=== PATIENT | female | born 1970 | race Caucasian/White ===

== ENCOUNTER 2017-09-29 18:03 | Inpatient (IN) | payer OTHER, SELFPAY ==
[2017-09-29 18:33] LABS: #Basophils 0.1 thou/uL (0.0-0.2); #Eosinphils 0.2 thou/uL (0.0-0.7); #Monocytes 1.2 thou/uL (0.11-0.59); #Neutrophils 8.1 thou/uL (1.40-6.50); %Eosinophils 1.1 % (0.0-10.0); %Lymphocytes 29.4 % (21.0-51.0); %Monocytes 8.8 % (0.0-10.0); Hematocrit 47.4 % (36.0-47.0); Mean Platelet Volume 7.8 fL (7.4-10.4); Red Blood Cell (RBC) Count 4.92 mill/uL (4.20-5.40); White Blood Cell (WBC) Count 13.6 thou/uL (4.8-10.8)
--- NOTE | 2017-09-29 18:46 | RAD ---
CHEST ONE VIEW 09/29/17 HISTORY: Palpitations. FINDINGS: The cardiac silhouette is magnified by projection. Pulmonary vasculature is unremarkable. Mediastinum is midline. There is no confluent air space consolidation or evidence of pneumothorax. The cardiac m onitor leads overlie the chest. IMPRESSION: No active cardiopulmonary abnormalities are demonstrated. POS: [facility]
[2017-09-29] MEDS ORDERED: Nitroglycerin 0.4 MG TAB (25 Tab Bottle) ONE (18:56)
[2017-09-29 18:58] LABS: ALT (SGPT) 11 U/L (8-55); AST (SGOT) 13 U/L (5-34); Alkaline Phosphatase 72 U/L (40-150); Anion Gap 13 mmol/L (10-20); BUN (Urea Nitrogen) 14 mg/dL (7.0-18.7); Bilirubin, Total 0.5 mg/dL (0.2-1.2); CK (CPK) 26 U/L (29-168); Calc. Creatinine Clearance 0 mL/min (70-130); Calcium 9.7 mg/dL (7.8-10.44); Carbon Dioxide 28 mmol/L (22-29); Chloride 102 mmol/L (98-107); Estimated GFR-MDRD 75; Globulin 3.3 g/dL (2.4-3.5); Protein, Total 7.5 g/dL (6.0-8.3)
[2017-09-29 19:03] LABS: Troponin I Less than 0.010 ng/mL (< 0.028)
[2017-09-29 19:50] LABS: Bilirubin Negative (Negative); Blood, Urine Small (Negative); Glucose, Urine (Dipstick) Negative (Negative); Ketone, Urine Negative (Negative); Nitrite Negative (Negative); Protein, Urine (Dipstick) Negative (Neg-Trace); Urobilinogen 0.2 mg/dL (0.2-1.0)
[2017-09-29 19:56] LABS: Bacteria/HPF None Seen HPF (None Seen); Hyaline Casts/LPF 0-3 HYALINE CAST LPF (0-3 Hyaline); Squamous Epithelial 0-3 HPF (0-3); WBC/HPF None Seen HPF (0-3)
[2017-09-29] MEDS ORDERED: Acetaminophen 500 MG TAB ONE (22:25)
[2017-09-29] MEDS ORDERED: Mag-Al 1200 mg/1200 mg/30 ML UDCUP PO PRN (22:47)
[2017-09-29] MEDS ORDERED: Milk Of Magnesia 30 ML UDCUP PO PRN (22:47)
[2017-09-29] MEDS ORDERED: Senokot 8.6 MG TAB PO PRN (22:47)
[2017-09-29] MEDS ORDERED: Zolpidem Tartrate 5 MG TAB PO PRN (22:47)
[2017-09-29] MEDS ORDERED: Acetaminophen 325 MG TAB PO PRN (22:47)
[2017-09-29] MEDS ORDERED: Loperamide HCl 2 MG CAP PO PRN (22:47)
[2017-09-29 22:48] VITALS: BMI 20.2
[2017-09-29 22:53] LABS: Troponin I Less than 0.010 ng/mL (< 0.028)
--- NOTE | 2017-09-29 23:36 | PDOC.EVN ---
Event Note - Event Note Event Note: Patient seen and examined. dictation note to follow
--- NOTE | 2017-09-30 01:09 | HP ---
DATE OF SERVICE: 09/29/2017 PRIMARY CARE PHYSICIAN: Sue Welch M.D. REASON FOR ADMISSION: Chest pain and palpitations. HISTORY OF PRESENT ILLNESS: A 47-year-old female who has history of supraventricular tachycardia who presented to the emergency room with complaint of chest pain and palpitation. The patient reports t hat she has a 2-week history of intermittent palpitation and chest discomfort. She denies any specif ic aggravating or relieving factor. She feels on and off pressure sensation in her chest. She denie s any radiation of pain. She denies any associated nausea or vomiting, but she feels a funny sensati on in her chest. She denies any associated shortness of breath or diaphoresis. The patient denies t aking excessive caffeinated products. The patient reports that she is taking all her medications reg ularly. The patient was able to follow Dr. Meek in [place], [place] for her heart related problem, but as she lost insurance, she was not able to follow up with him. The patient reports that she has a history of SVT. She never had ablation before she is taking her medication only. She denies any f ever or chills. She denies any constipation, diarrhea, or UTI symptoms. She was recently treated fo r UTI, but currently denies any UTI symptoms. ALLERGIES: AMOXICILLIN, CIPRO TABLET, PENICILLIN, SULFA DRUGS. CURRENT HOME MEDICATIONS: Digoxin 0.125 mg p.o. daily, metoprolol 12.5 mg p.o. daily, propafenone 75 mg p.o. b.i.d. REVIEW OF SYSTEMS: The following complete review of systems was negative, unless otherwise mentioned in the HPI or below: Constitutional: Weight loss or gain, sense of well-being, ability to conduct usual activities, exerc ise tolerance. Skin/Breast: Rash, itching, changes in hair growth or loss, nail changes, breast lum ps, tenderness, swelling, nipple discharge. Eyes: Vision, double vision, tearing, blind spots, pain . ENT/Mouth: Headaches (location, time of onset, duration, precipitating factors), vertigo, lighthe adedness, injury. Vision, double vision, tearing, blind spots, pain, nose bleeding, colds, obstructio n, discharge, dental difficulties, gingival bleeding, dentures, neck stiffness, pain, tenderness, mas ses in thyroid or other areas. Cardiovascular: Precordial pain, substernal distress, palpitations, syncope, dyspnea on exertion, orthopnea, nocturnal paroxysmal dyspnea, edema, cyanosis, hypertension, heart murmurs, varicosities, phlebitis, claudication. Respiratory: Pain, shortness of breath, whee zing, stridor, cough, hemoptysis, fever or night sweats. Gastrointestinal: Poor appetite, dysphagia , indigestion, abdominal pain, heartburn, eructation, nausea, vomiting, hematemesis, jaundice, consti pation, or diarrhea, abnormal stools (brendan-colored, tarry, bloody, greasy, foul smelling), flatulence , hemorrhoids, recent changes in bowel habits. Genitourinary: Urgency, frequency, dysuria, nocturia , hematuria, polyuria, oliguria, unusual (or change in) color of urine, stones, hesitancy, change in size of stream, dribbling, acute retention or incontinence, libido, potency. Musculoskeletal: Pain, swelling, redness or heat of muscles or joints, limitation, of motion, muscular weakness, atrophy, c ramps. Neurologic/Psychiatric: Convulsions, paralyses, tremor, incoordination, parasthesias, diffic ulties with memory of speech, sensory or motor disturbances, or muscular coordination (ataxia, tremor ), emotional problems, anxiety, depression, previous psychiatric care, unusual perceptions, hallucina tions. Allergy/Immunologic: Skin rash, anemia, bleeding tendency, polydipsia, polyuria, intolerance to heat or cold. Please see my HPI for pertinent positives and negatives. All other review of systems reviewed and ne gative except as mentioned in the HPI. PAST MEDICAL HISTORY: History of SVT, history of trivial MR and trivial tricuspid regurgitation. PAST SURGICAL HISTORY: Reviewed and negative. PAST PSYCHIATRIC HISTORY: Reviewed and negative. FAMILY HISTORY: Patient's brother has pacemaker. Father also had heart disease. Mother also had he art disease. SOCIAL HISTORY: Patient lives at home. She denies any tobacco, alcohol or illicit drug abuse. EMERGENCY ROOM COURSE: The patient is given Tylenol 1 gram and nitroglycerin 0.4 mg sublingual and a spirin 325 mg. PHYSICAL EXAMINATION: VITAL SIGNS: On arrival, blood pressure 108/69, pulse 83, respiratory rate 20, temperature 98.5, sat uration 98% on room air, weight 250.8 kilograms. GENERAL: Patient is currently alert, awake, no acute distress. HEENT: Normocephalic, atraumatic. Eyes: Pupils round, reactive to light. Extraocular muscles inta ct. ENT: Oropharynx within normal limits. Moist mucous membranes. No oral lesions. No pharyngeal eryt beau, no exudate. NECK: Supple. Range of motion is normal. No meningeal signs of irritation. LUNGS: Clear to auscultation without any rhonchi or rales. CARDIAC: S1, S2 regular without any murmur. ABDOMEN: Soft, bowel sounds present, nontender, nondistended. No organomegaly, no mass, no suprapub ic tenderness. BACK: Unremarkable, no CVA tenderness. EXTREMITIES: Upper extremity passive movement of all joints are normal. Lower extremities: No kristin a. Good peripheral pulsation. SKIN: No skin rash. HEMATOLOGICAL: No lymphadenopathy. NEUROLOGIC: Nonfocal examination. SIGNIFICANT LABORATORY DATA: CBC: WBC 13.6, hemoglobin 15.1, platelets 336. BMP: Sodium 139, potassium 4.0, chloride 102, carbo n dioxide 28, BUN 14, creatinine 0.81, glucose 81, calcium 9.7. LFT: AST 13, ALT 11, alkaline phosp hatase 72, albumin 4.2, CK 26, CK-MB 0.5, troponin I less than 0.010. TSH 3.14. Urinalysis normal. EKG: Normal sinus rhythm, nonspecific ST-T changes. Chest x-ray based on my review, no acute cardi opulmonary process. ASSESSMENT AND PLAN: 1. Chest pain and palpitations, rule out acute coronary syndrome. At this point, patient's electroc ardiogram is normal. This patient does have a history of supraventricular tachycardia and that is wh y I will monitor on telemetry floor and rule out any kind of arrhythmia. Meanwhile, we will continue with nitroglycerin sublingual on a p.r.n. basis. We will check lipid profile for risk stratificatio n. Her TSH is normal. For further evaluation, we will perform exercise Cardiolite stress test tomor row morning. This patient has risk factors for coronary artery disease including her age as well as family history. 2. History of supraventricular tachycardia. We will continue patient's medication with digoxin 0.12 5 mg p.o. daily. We will hold metoprolol because we are planning to do a stress test. We will gualberto nue propafenone 75 mg p.o. b.i.d. 3. Deep venous thrombosis prophylaxis not needed because we are expecting discharge in 24 hours. 4. Gastrointestinal prophylaxis, Pepcid 20 mg p.o. b.i.d. 5. Code status: The patient is FULL CODE. Patient does not have any surrogate decision maker. Disposition plan based on stress test results, likely within 24 hours.
[2017-09-30 01:13] LABS: Troponin I Less than 0.010 ng/mL (< 0.028)
[2017-09-30] MEDS: HYDROcodone/Acetaminophen 5/325 mg Tablet PO PRN ×2 (03:19→09:06)
[2017-09-30] MEDS ORDERED: FLU VACC QS2017-18 36 mo. & older 0.5 ML SYRINGE IM ONE (09:00)
[2017-09-30] MEDS: Aspirin 325 MG TAB PO SCH (09:04)
[2017-09-30] MEDS: Famotidine 20 MG TAB PO SCH ×2 (09:04→21:53)
[2017-09-30] MEDS: Digoxin 0.125 MG TAB PO SCH (09:04)
[2017-09-30] MEDS: Propafenone HCl 150 MG TAB PO SCH ×2 (09:05→21:52)
[2017-09-30] MEDS: Ondansetron HCl/PF 4 MG/2 ML Vial IVP PRN ×2 (10:37→15:25)
--- NOTE | 2017-09-30 15:19 | NM ---
EXAM: NUCLEAR MEDICINE CARDIAC STRESS WITH EF AND WALL MOTION: HISTORY: Chest pain. History of SVT. Family history of coronary artery disease. COMPARISON: None. TECHNIQUE: The patient was administered 27.10 mCi of Technetium 99m sestamibi for stress imaging and 9 mCi of Te chnetium 99m sestamibi for stress imaging. Cardiac gating is performed. FINDINGS: There is evidence of reversibility involving the apical and mid anterior left ventricle. TID is 1.10. End-diastolic volume is 51 mL. End-systolic volume is 8 mL. CARDIAC GATING: Normal motion and thickening. Ejection fraction is 84%. IMPRESSION: Reversibility involving the apical and mid anterior left ventricle. POS: [facility]
--- NOTE | 2017-09-30 15:41 | PDOC.PN ---
- Subjective Encounter Start Date: 09/30/17 Encounter Start Time: 15:39 Subjective: some nausea, no chest pain - Objective Resuscitation Status: Resuscitation Status FULL:Full Resuscitation MAR Reviewed: Yes Vital Signs & Weight: Vital Signs (12 hours) Temp Pulse Resp BP Pulse Ox 09/30/17 09:04 79 09/30/17 08:05 97.6 F 79 18 100/53 L 99 09/30/17 07:51 98.2 F 79 18 I&O: 09/29/17 09/30/17 10/01/17 06:59 06:59 06:59 Intake Total 300 Output Total 300 Balance 0 Result Diagrams: 09/29/17 18:19 09/29/17 18:19 Phys Exam - Physical Examination Constitutional: NAD Neck: no JVD Respiratory: clear to auscultation bilateral Cardiovascular: RRR, no significant murmur Gastrointestinal: soft, non-tender Musculoskeletal: no edema Dx/Plan (1) Chest pain Code(s): R07.9 - CHEST PAIN, UNSPECIFIED Status: Acute (2) Nausea Code(s): R11.0 - NAUSEA Status: Acute (3) SVT (supraventricular tachycardia) Code(s): I47.1 - SUPRAVENTRICULAR TACHYCARDIA Status: Acute - Plan pos stress test test, cont asa, consult cardiology * .
[2017-09-30] MEDS ORDERED: ADENOSINE 60 MG/20 ML VIAL ONE (16:44)
[2017-09-30] MEDS ORDERED: Communication Order-Pharmacy FS SCH (17:30)
--- NOTE | 2017-09-30 22:15 | CON ---
DATE OF ADMISSION: 09/29/2017 DATE OF CONSULTATION: 09/30/2017 INDICATION FOR CONSULTATION: A 47-year-old female with a history of SVT and chest pain with abnormal stress test. Please refer to the notes already dictated by the nurse practitioner Alee. We were a sked to see this patient after she was found to have an abnormal stress test with what appears to be some anterior wall ischemia. She has a long history of SVT. She has been followed by Cardiology at another facility, but has not had any ablation. She has been on medical management, but recently lázaro rawls the last few months has been noticing episodes of supraventricular rapid heart rates and occasion ally with rapid heart rate, she developed chest discomfort. She presented to the hospital and underw ent evaluation in the emergency room, there was no SVT noted and she has not had any SVT since being in the hospital that I can ascertain, but since she has had some chest discomfort and a stress test w as ordered and was found to have some anterior wall ischemia. After discussion with the patient, it was felt best that she proceed with cardiac catheterization as a definitive tool to rule out evidence of underlying coronary artery disease. Also, she may need to be evaluated by electrophysiology for her SVT and undergo possible ablation as she has had multiple hospital admissions apparently other fa cilities due to the supraventricular tachycardia. She has been placed on medications, digoxin and me toprolol which the majority of the times seems to be holding her heart rate to at least not any signi ficant tachycardia, but she does stay at home. She does have noticed her heart rate sometimes in the 50s and sometimes in the 130s and during these episodes when she has some chest discomfort when the heart rate was fast and certainly it sounds by history that this is obviously SVT and apparently acco rding to her, she has had this documented in the past and has been followed by patent engineer elsewhere . As far as her past medical history, social history and review of systems, please refer to the note s already dictated. PHYSICAL EXAMINATION: GENERAL: Reveals a well-developed, well-nourished female in no acute distress. She is alert and luz ented. VITAL SIGNS: Her blood pressure is stable at 115/66, heart rate 76 and regular. She is afebrile. HEENT: Shows the head to be normocephalic and atraumatic. Carotid pulses are present. There were n o bruits. CHEST: Clear. CARDIOVASCULAR: Exam reveals a regular rate and rhythm. No significant murmurs, heaves, thrills, br uits or rubs. ABDOMEN: Soft and nontender. Positive bowel sounds are present. EXTREMITIES: Showed no clubbing, cyanosis or edema. Pedal pulses are present. NEUROLOGIC: She appears to be fully intact. At this time, her EKG shows a normal sinus rhythm without any acute changes to indicate ischemia or p revious myocardial infarction. She did have some nonspecific ST segment T-wave changes which were ve ry minimal and would not be considered any significance. She does have some T-wave inversions in V1 and V2, but this may be just a juvenile T-wave still on this relatively young female. We will contin ue to monitor over the weekend as she has been scheduled for cardiac catheterization on Tuesday to det ermine her coronary artery status unless she becomes unstable of the weekend and she will undergo urg ent catheterization. Her cardiac enzymes have remained negative. I did explain to her the procedure and the risks to include bleeding, infection, possibly a myocardial infarction, cerebrovascular acci dent, renal insufficiency, allergic contrast reaction and even the possibility of . She underst ands and agrees to proceed with planned procedure on Tuesday.
--- NOTE | 2017-10-01 07:29 | CON ---
DATE OF CONSULTATION: 09/30/2017 ROOM NUMBER: [id number]. PRIMARY CARE PHYSICIAN: PRIMARY HAIR CUTTER: Virginia Villalpando M.D. REFERRING PHYSICIAN: Aamir Chan M.D. REASON FOR CARDIOLOGY CONSULTATION: Abnormal stress test result. HISTORY OF PRESENT ILLNESS: Ms. Ramey is a 47 years old female with significant history of migraine and supraventricular tachycardia, who presented to the emergency department for heaviness like discomfort in her chest and near syncope. The patient started having chest tightness in her midsternal area with nausea, lightheadedness, with irregular heart rate of 50s to 130s about 2 weeks ago. Since then, her heart rates became irregular and accompanied with chest tightness and almost near syncope episodes for about 2 weeks. She started skipping her digoxin and cut her metoprolol in half for her low heart rate. She had not checked her blood pressure at home. On 09/29/2017, suddenly she felt heaviness like in her chest that she described as somebody punched her chest, with near syncope episode for 5 minutes. She called an ambulance and was transferred to [facility] emergency department for further evaluation and treatments. At that time, she did not take any medication to improve her symptoms. She also complained about fluttering in her chest for 2 weeks at bedtime. She had a history of UTI about 1 week ago. She was prescribed Macrobid 100 mg twice a day. After second dose of Macrobid, she started having hives all over her body. She was prescribed of prednisone and Benadryl. She never had any cardiac-related work up done. At this time, she denies chest pain or discomfort in her chest, palpitation, fluttering, nausea, vomiting, diaphoresis, shortness of breath or any other cardiac complaints. She was hospitalized in 2016 with a complaint of blurry vision. Her MRI revealed mild ventriculomegaly. She was diagnosed with ocular migraines and history of vertigo. PAST MEDICAL HISTORY: History of SVTs, ocular migraine, vertigo, recent UTI, and hives from possible allergic reaction from MACROBID. PAST SURGICAL HISTORY: She never had any surgery. FAMILY HISTORY: There is significant history of diabetes and heart disease in her maternal side and her two brothers had history of heart disease and one of her brother had pacemaker placement and her father due to prostate cancer. SOCIAL HISTORY: She is single. She lives by herself. She denies smoke, ETOH, or drug abuse. At this time, she does not have insurance. ALLERGIES: She is allergic to MACROBID, PENICILLIN, AMOXICILLIN and SULFA drug. She denies allergies to iodine. HOME MEDICATIONS: Digoxin 0.125 mg once a day, metoprolol 12.5 mg twice a day, propafenone 75 mg twice a day. She has had prednisone and Benadryl for a treatment for her hives. REVIEW OF SYSTEMS: The following complete review of systems was negative, unless otherwise mentioned in the HPI or below: Constitutional: Weight loss or gain, sense of wellbeing, ability to conduct usual activities, exercise tolerance. Skin: Positive for hives. She denies hives, rash, or itching at this moment. Breasts: Negative for breast lump, tenderness, swelling, nipple discharge. Eyes: Vision change, double vision, tearing, blind spots, pain. ENT/Mouth: Headache, vertigo, nasal bleeding or obstruction, dental difficulty , gingival bleeding, dentures, neck stiffness, pain, tenderness, mass in the thyroid or other areas. Cardiovascular: Precordial pain, substernal distress, palpitation, syncope, dyspnea on exertion, orthopnea, nocturnal dyspnea, edema, cyanosis, hypertension, heart murmur, varicosis, claudication. Respiratory: Shortness of breath, wheezing, stridor, cough, hemoptysis. Gastrointestinal: Poor appetite, dysphagia, indigestion, abdominal pain, heartburn, jaundice, constipation or diarrhea or blood in stool. Genitourinary: Urgency, frequency , dysuria, nocturia, hematuria, polyuria, oliguria, unusual color of urine, stones, hesitancy, retention or incontinence. Musculoskeletal: She cannot raise her left arm above the shoulder, however, negative for pain, swelling, redness or heat of muscle or joint, limitation of motion, muscular weakness, atrophy, or cramps. Neurologic: Seizure, conversion, paralysis, tremor, incoordination, difficulty with memory of speech, sensory or motor disturbance or muscular coordination. Psychiatric: Emotional problem, anxiety, depression , previous psychiatric care, unusual perceptions, hallucinations. PHYSICAL EXAMINATION: VITAL SIGNS: Blood pressure 115/66, heart rate 76, respiratory rate 16, O2 saturation 97% on room air, temperature is 97.7. GENERAL: Well-developed, well-nourished without any acute distress. HEAD: Normocephalic, atraumatic. EYES: Extraocular muscle movements are intact. ENT/MOUTH: Oral and nasal mucosa are moist without lesions. NECK: No JVD. Neck is supple and normal range of motion. LUNGS: Clear to auscultation bilaterally. No wheezing, rales, or rhonchi noted. CARDIOVASCULAR: Regular rate and rhythm, normal S1, S2. There are no S3 or S4. No significant murmur, hives, thrill, bruit, or rub noted. There are 2+ pulses in bilateral dorsal pedis, posterior tibial, popliteal, and femoral. Carotid pulses are present without bruits or thrills. No edema in bilateral lower extremities. ABDOMEN: Soft, nontender or mass to palpate, nondistended. Bowel sounds are present. MUSCULOSKELETAL: Able to move all extremities. No calf tenderness. SKIN: Warm and dry. No skin rash, lesion, or bruise noted. NEUROLOGIC: Alert, oriented x4, awake. Normal affect. Nonfocal. PSYCHIATRIC: Mood and affect are normal. EKG: A 12-lead EKG in the ER shows normal sinus rhythm with heart rate of 79. No ST segment change. LABORATORY DATA: WBC 13.6, hemoglobin 15.1, hematocrit 47.4, platelets 336. Chemistry: Sodium 139, potassium 4.0, BUN 14, creatinine 0.81, AST 13, and ALT 11. CK-MB 0.5, troponin less than 0.010 x3. Total cholesterol 152, triglycerides 51, HDL 50, LDL 92. TSH 3.1475 and 2.3745. Chest x-ray revealed no acute cardiopulmonary abnormality. The patient's stress test today shows reversible ischemia in apical and mid anterior left ventricle with ejection fraction of 84%. ASSESSMENT AND PLAN: 1. Chest pain. At this time, the patient is symptomatic. The patient's 12 lead EKG in the ER shows normal sinus rhythm with no significant ST segment changes. The patient's cardiac enzymes are negative; however, the patient has a strong family history of cardiac-related disease, medical history of supraventricular tachycardia, and abnormal stress test with reversible ischemia in anterior left ventricle. The patient will undergo cardiac catheterization on 10/03/2017. The patient was explained about the procedure of catheterization, the benefit and the risks of the procedure, such as hemorrhage, infection, thrombose formation, PE, CVA, NM, and even . She voiced understanding and agreed to proceed the procedure. 2. History of supraventricular tachycardia. Telemetry records show heart rates have been 60 to lower 100s with SR during this admission. The patient's TSH is within the normal range. However, due to the history of supraventricular tachycardia, we would like to request EP consult for further evaluation and treatments. We would like to continue to monitor the patient on telemetry. 3. History of ocular migraine. At this moment, the patient's symptom is stable and we would like to continue to monitor with Tylenol PRN. Managed by PCP. 4. History of vertigo. The patient's condition is stable. At this time, we would like to continue to monitor. Thank you very much for allowing Cardiology Service to participate in care of this patient. We will follow along with the patient's care team and make further recommendations as appropriate. BRIAN
[2017-10-01] MEDS: Famotidine 20 MG TAB PO SCH ×2 (08:40→20:27)
[2017-10-01] MEDS: Metoprolol Tartrate 25 MG TAB PO SCH (08:40)
[2017-10-01] MEDS: Aspirin 325 MG TAB PO SCH (08:40)
[2017-10-01] MEDS: Digoxin 0.125 MG TAB PO SCH (08:40)
[2017-10-01] MEDS: Propafenone HCl 150 MG TAB PO SCH ×2 (08:43→20:28)
[2017-10-01] MEDS ORDERED: Prevnar 13-Val Conj/PF 0.5 ML SYRINGE IM ONE (09:00)
--- NOTE | 2017-10-01 09:08 | PRG ---
DATE OF SERVICE: 10/01/[address] Villalpando. SUBJECTIVE: Ms. Ramey states she had some chest discomfort last night at rest. They did not see an y arrhythmias on the monitor. Similar to the pain that brought her into the hospital, occurred at re st and then resolved. Feels well today. OBJECTIVE: VITAL SIGNS: Blood pressure 126/64, pulse 80 and it is regular. LUNGS: Clear. CARDIAC: Normal S1, normal S2. ABDOMEN: Soft, nontender. EXTREMITIES: There is no edema. ASSESSMENT: 1. Probable unstable angina. 2. Abnormal stress test. PLAN: 1. Catheterization scheduled for Tuesday. 2. We will add Lovenox at this time. 3. We will also add atorvastatin until cardiac catheterization is done.
[2017-10-01] MEDS: Enoxaparin Sodium 60 MG/0.6 ML SYRINGE SC SCH ×2 (10:02→20:27)
[2017-10-01] MEDS ORDERED: Loratadine 10 MG TAB PO PRN (12:44)
--- NOTE | 2017-10-01 12:46 | PDOC.PN ---
- Subjective Encounter Start Date: 10/01/17 Encounter Start Time: 07:40 Pt seen for followup re: chest pain. No cough, fevers or chills. Reports itching of scalp and palms. - Objective Resuscitation Status: Resuscitation Status FULL:Full Resuscitation MAR Reviewed: Yes Vital Signs & Weight: Vital Signs (12 hours) Temp Pulse Resp BP Pulse Ox 10/01/17 11:28 97.9 F 73 16 107/61 98 10/01/17 08:40 81 10/01/17 08:37 98.2 F 81 16 126/64 96 10/01/17 05:11 97.5 F L 75 20 114/62 94 L Weight Weight 112 lb 11.2 oz I&O: 09/30/17 10/01/17 10/02/17 06:59 06:59 06:59 Intake Total 300 930 Output Total 300 1000 Balance 0 -70 Result Diagrams: 09/29/17 18:19 09/29/17 18:19 EKG Reviewed by me: Yes (Tele: NSR) Phys Exam - Physical Examination Constitutional: NAD HEENT: PERRLA, moist MMs, sclera anicteric, oral pharynx no lesions Neck: no nodes, no JVD, supple, full ROM Respiratory: no wheezing, no rales, no rhonchi, clear to auscultation bilateral Cardiovascular: RRR, no rub Gastrointestinal: soft, non-tender, no distention, positive bowel sounds Musculoskeletal: pulses present Neurological: moves all 4 limbs Lymphatic: no nodes Psychiatric: normal affect, A&O x 3 Skin: no rash, normal turgor, cap refill <2 seconds Dx/Plan (1) Chest pain Code(s): R07.9 - CHEST PAIN, UNSPECIFIED Status: Acute (2) Unstable angina Status: Suspected (3) Itching Code(s): L29.9 - PRURITUS, UNSPECIFIED Status: Acute (4) SVT (supraventricular tachycardia) Code(s): I47.1 - SUPRAVENTRICULAR TACHYCARDIA Status: Chronic - Plan DVT proph w/lovenox, DVT proph w/SCDs * . No clear allergen, start Zyrtec PRN. Awaiting cath on Tuesday. Cardiology following. Pt is on Lovenox and statin. Review of Systems - Review of Systems Constitutional: negative: Fever, Chills, Sweats, Weakness, Malaise Respiratory: negative: Cough, Dry, Shortness of Breath, Hemoptysis, SOB with Excertion, Pleuritic Pain, Sputum, Wheezing Cardiovascular: Chest Pain. negative: Palpitations, Orthopnea, Paroxysmal Noc. Dyspnea, Edema, Light Headedness Gastrointestinal: negative: Nausea, Vomiting, Abdominal Pain, Diarrhea, Constipation, Melena, Hematochezia Genitourinary: negative: Dysuria, Frequency, Incontinence, Hematuria, Retention Skin: Other (Itching) - Medications/Allergies Allergies/Adverse Reactions: Allergies Allergy/AdvReac Type Severity Reaction Status Date / Time amoxicillin Allergy Verified 06/23/16 22:25 ciprofloxacin [From Cipro] Allergy Verified 06/23/16 22:24 ciprofloxacin HCl Allergy Verified 06/23/16 22:25 [From Cipro] nitrofurantoin Allergy Verified 09/29/17 23:01 Penicillins Allergy Verified 06/23/16 22:25 Sulfa (Sulfonamide Allergy Verified 06/23/16 22:25 Antibiotics) perflutren lipid microspheres AdvReac Unknown Rash Verified 09/29/17 23:00 [From Definity] Medications: Current Medications Acetaminophen (Tylenol) 650 mg PO Q4H PRN PRN Reason: Headache/Fever or Pain Hydrocodone Bitart/Acetaminophen ([place] 5/325) 1 tab PO Q4H PRN PRN Reason: Moderate Pain (4-6) Last Admin: 09/30/17 09:06 Dose: 1 tab Al Hydroxide/Mg Hydroxide (Maalox) 30 ml PO Q6H PRN PRN Reason: Heartburn or Indigestion Aspirin (Aspirin) 325 mg PO DAILY [facility] Last Admin: 10/01/17 08:40 Dose: 325 mg Atorvastatin Calcium (Lipitor) 40 mg PO [facility] Digoxin (Lanoxin) 0.125 mg PO DAILY [facility] Last Admin: 10/01/17 08:40 Dose: 0.125 mg Enoxaparin Sodium (Lovenox) 50 mg SC 0900,2100 [facility] Last Admin: 10/01/17 10:02 Dose: 50 mg Famotidine (Pepcid) 20 mg PO BID [facility] Last Admin: 10/01/17 08:40 Dose: 20 mg Loperamide HCl (Imodium) 2 mg PO PRN PRN PRN Reason: Diarrhea/Loose Stools Loratadine (Claritin) 10 mg PO DAILYPRN PRN PRN Reason: Allergies Magnesium Hydroxide (Milk Of Magnesium) 30 ml PO DAILYPRN PRN PRN Reason: Constipation Metoprolol Tartrate (Lopressor) 12.5 mg PO DAILY [facility] Last Admin: 10/01/17 08:40 Dose: 12.5 mg Miscellaneous Information (Communication Order-Pharmacy) 0 each FS ONE [facility] Stop: 10/02/17 23:59 Nitroglycerin (Nitrostat) 0.4 mg PO Q5MIN PRN PRN Reason: Chest Pain Ondansetron HCl (Zofran Odt) 4 mg PO Q6H PRN PRN Reason: Nausea/Vomiting Ondansetron HCl (Zofran) 4 mg IVP Q6H PRN PRN Reason: Nausea/Vomiting Last Admin: 09/30/17 15:25 Dose: 4 mg Propafenone HCl (Rythmol) 75 mg PO BID [facility] Last Admin: 10/01/17 08:43 Dose: 75 mg Senna (Senokot) 2 tab PO HSPRN PRN PRN Reason: Constipation Sodium Chloride (Flush - Normal Saline) 10 ml IVF Q12HR [facility] Last Admin: 10/01/17 08:44 Dose: 10 ml Sodium Chloride (Flush - Normal Saline) 10 ml IVF PRN PRN PRN Reason: Saline Flush Zolpidem Tartrate (Ambien) 5 mg PO HSPRN PRN PRN Reason: Insomnia
[2017-10-01 15:35] LABS: Hematocrit 42.1 % (36.0-47.0)
[2017-10-01] MEDS: Nitroglycerin 0.4 MG TAB (25 Tab Bottle) PO PRN ×2 (15:36→15:45)
[2017-10-01] MEDS: Atorvastatin Calcium 40 MG TAB PO SCH (20:26)
[2017-10-02 08:44] LABS: Troponin I Less than 0.010 ng/mL (< 0.028)
[2017-10-02] MEDS: Aspirin 325 MG TAB PO SCH (09:09)
[2017-10-02] MEDS: Digoxin 0.125 MG TAB PO SCH (09:09)
[2017-10-02] MEDS: Enoxaparin Sodium 60 MG/0.6 ML SYRINGE SC SCH ×2 (09:09→21:35)
[2017-10-02] MEDS: Propafenone HCl 150 MG TAB PO SCH ×2 (09:10→21:34)
[2017-10-02] MEDS: Famotidine 20 MG TAB PO SCH ×2 (09:10→21:35)
[2017-10-02] MEDS: Metoprolol Tartrate 25 MG TAB PO SCH (09:10)
--- NOTE | 2017-10-02 12:13 | PDOC.PN ---
- Subjective Encounter Start Date: 10/02/17 Encounter Start Time: 07:40 Pt seen for followup re; chest pain. Denies chest pain, nausea, vomiting or diarrhea. Still has itching. - Objective Resuscitation Status: Resuscitation Status FULL:Full Resuscitation MAR Reviewed: Yes Vital Signs & Weight: Vital Signs (12 hours) Temp Pulse Resp BP Pulse Ox 10/02/17 11:34 98.1 F 68 20 108/68 98 10/02/17 09:09 70 10/02/17 09:04 97.9 F 70 16 114/65 96 10/02/17 04:00 98.7 F 74 20 102/59 L 96 10/02/17 02:24 98 Weight Weight 110 lb 11.2 oz I&O: 10/01/17 10/02/17 10/03/17 06:59 06:59 06:59 Intake Total 930 960 Output Total 1000 2700 Johbejv -70 -6077 Result Diagrams: 10/01/17 15:19 10/01/17 15:19 EKG Reviewed by me: Yes (Tele: NSR, run of SVT yesterday) Phys Exam - Physical Examination Constitutional: NAD HEENT: moist MMs Neck: supple Respiratory: clear to auscultation bilateral Cardiovascular: RRR Gastrointestinal: soft Musculoskeletal: pulses present Neurological: moves all 4 limbs Lymphatic: no nodes Psychiatric: normal affect Skin: no rash Dx/Plan (1) Chest pain Code(s): R07.9 - CHEST PAIN, UNSPECIFIED Status: Acute (2) Unstable angina Status: Suspected (3) Itching Code(s): L29.9 - PRURITUS, UNSPECIFIED Status: Acute (4) SVT (supraventricular tachycardia) Code(s): I47.1 - SUPRAVENTRICULAR TACHYCARDIA Status: Chronic - Plan * . Pt to go for cath tomorrow. Will start PRN Benadryl for itching (already on PRN Zyrtec). Cardiology following. Review of Systems - Review of Systems Constitutional: negative: Fever, Chills, Sweats, Weakness, Malaise, Other Cardiovascular: negative: Chest Pain, Palpitations, Orthopnea, Paroxysmal Noc. Dyspnea, Edema, Light Headedness, Other Gastrointestinal: negative: Nausea, Vomiting, Abdominal Pain, Diarrhea, Constipation, Melena, Hematochezia - Medications/Allergies Allergies/Adverse Reactions: Allergies Allergy/AdvReac Type Severity Reaction Status Date / Time amoxicillin Allergy Verified 06/23/16 22:25 ciprofloxacin [From Cipro] Allergy Verified 06/23/16 22:24 ciprofloxacin HCl Allergy Verified 06/23/16 22:25 [From Cipro] nitrofurantoin Allergy Verified 09/29/17 23:01 Penicillins Allergy Verified 06/23/16 22:25 Sulfa (Sulfonamide Allergy Verified 06/23/16 22:25 Antibiotics) perflutren lipid microspheres AdvReac Unknown Rash Verified 09/29/17 23:00 [From Definity] Medications: Current Medications Acetaminophen (Tylenol) 650 mg PO Q4H PRN PRN Reason: Headache/Fever or Pain Last Admin: 10/01/17 20:26 Dose: 650 mg Hydrocodone Bitart/Acetaminophen ([place] 5/325) 1 tab PO Q4H PRN PRN Reason: Moderate Pain (4-6) Last Admin: 09/30/17 09:06 Dose: 1 tab Al Hydroxide/Mg Hydroxide (Maalox) 30 ml PO Q6H PRN PRN Reason: Heartburn or Indigestion Aspirin (Aspirin) 325 mg PO DAILY [facility] Last Admin: 10/02/17 09:09 Dose: 325 mg Atorvastatin Calcium (Lipitor) 40 mg PO HS [facility] Last Admin: 10/01/17 20:26 Dose: 40 mg Digoxin (Lanoxin) 0.125 mg PO DAILY [facility] Last Admin: 10/02/17 09:09 Dose: 0.125 mg Enoxaparin Sodium (Lovenox) 50 mg SC 0900,2100 [facility] Last Admin: 10/02/17 09:09 Dose: 50 mg Famotidine (Pepcid) 20 mg PO BID [facility] Last Admin: 10/02/17 09:10 Dose: 20 mg Loperamide HCl (Imodium) 2 mg PO PRN PRN PRN Reason: Diarrhea/Loose Stools Loratadine (Claritin) 10 mg PO DAILYPRN PRN PRN Reason: Allergies Last Admin: 10/02/17 09:07 Dose: 10 mg Magnesium Hydroxide (Milk Of Magnesium) 30 ml PO DAILYPRN PRN PRN Reason: Constipation Metoprolol Tartrate (Lopressor) 12.5 mg PO DAILY [facility] Last Admin: 10/02/17 09:10 Dose: 12.5 mg Miscellaneous Information (Communication Order-Pharmacy) 0 each FS ONE [facility] Stop: 10/02/17 23:59 Nitroglycerin (Nitrostat) 0.4 mg PO Q5MIN PRN PRN Reason: Chest Pain Last Admin: 10/01/17 15:45 Dose: 0.4 mg Ondansetron HCl (Zofran Odt) 4 mg PO Q6H PRN PRN Reason: Nausea/Vomiting Ondansetron HCl (Zofran) 4 mg IVP Q6H PRN PRN Reason: Nausea/Vomiting Last Admin: 09/30/17 15:25 Dose: 4 mg Propafenone HCl (Rythmol) 75 mg PO BID [facility] Last Admin: 10/02/17 09:10 Dose: 75 mg Senna (Senokot) 2 tab PO HSPRN PRN PRN Reason: Constipation Sodium Chloride (Flush - Normal Saline) 10 ml IVF Q12HR [facility] Last Admin: 10/02/17 09:11 Dose: 10 ml Sodium Chloride (Flush - Normal Saline) 10 ml IVF PRN PRN PRN Reason: Saline Flush Zolpidem Tartrate (Ambien) 5 mg PO HSPRN PRN PRN Reason: Insomnia
[2017-10-02] MEDS ORDERED: diphenhydrAMINE 25 MG CAP PO PRN (12:14)
--- NOTE | 2017-10-02 13:56 | PRG ---
DATE OF SERVICE: 10/02/2017 SUBJECTIVE: Ms. Ramey is doing well today, but she had severe chest pain last night. The EKG was d one and is unremarkable. There are no changes. Cardiac enzymes were also negative. She stated similar to the pain she has had that brought her to the hospital. The patient also had an episode of nonsustained supraventricular tachycardia. PHYSICAL EXAMINATION: GENERAL: Doing well today. VITAL SIGNS: Blood pressure is 108/68, pulse 68 and regular. LUNGS: Clear. CARDIAC: Normal S1, normal S2. ABDOMEN: Soft, nontender. EXTREMITIES: There is no edema. ASSESSMENT: 1. Chest pressure, intermittent, possible unstable angina. 2. Abnormal stress test. PLAN: 1. Proceed to cardiac catheterization tomorrow that has been discussed by Dr. Villalpando. 2. Continue Lovenox tonight. 3. She is on aspirin and she is on a statin.
[2017-10-02] MEDS: Ondansetron ODT 4 MG TAB PO PRN (16:12)
[2017-10-02] MEDS: Atorvastatin Calcium 40 MG TAB PO SCH (21:35)
[2017-10-03 05:32] LABS: #Basophils 0.1 thou/uL (0.0-0.2); #Eosinphils 0.2 thou/uL (0.0-0.7); #Lymphocytes 2.5 thou/uL (1.20-3.40); #Neutrophils 4.8 thou/uL (1.40-6.50); %Eosinophils 2.1 % (0.0-10.0); %Lymphocytes 29.5 % (21.0-51.0); %Monocytes 11.6 % (0.0-10.0); Hematocrit 40.9 % (36.0-47.0); Mean Platelet Volume 7.4 fL (7.4-10.4); Red Blood Cell (RBC) Count 4.26 mill/uL (4.20-5.40); White Blood Cell (WBC) Count 8.5 thou/uL (4.8-10.8)
[2017-10-03 05:53] LABS: ALT (SGPT) 10 U/L (8-55); AST (SGOT) 13 U/L (5-34); Alkaline Phosphatase 58 U/L (40-150); Anion Gap 8 mmol/L (10-20); BUN (Urea Nitrogen) 9 mg/dL (7.0-18.7); Bilirubin, Total 0.6 mg/dL (0.2-1.2); Calc. Creatinine Clearance 75 mL/min (70-130); Calcium 8.9 mg/dL (7.8-10.44); Carbon Dioxide 28 mmol/L (22-29); Chloride 106 mmol/L (98-107); Estimated GFR-MDRD 87; Globulin 2.7 g/dL (2.4-3.5)
[2017-10-03] MEDS: Aspirin 325 MG TAB PO SCH (05:57)
[2017-10-03] MEDS: Metoprolol Tartrate 25 MG TAB PO SCH (05:58)
[2017-10-03] MEDS: Digoxin 0.125 MG TAB PO SCH (05:58)
[2017-10-03] MEDS: Propafenone HCl 150 MG TAB PO SCH (05:59)
[2017-10-03] MEDS: Famotidine 20 MG TAB PO SCH (06:00)
[2017-10-03] MEDS: Enoxaparin Sodium 60 MG/0.6 ML SYRINGE SC SCH (07:37)
[2017-10-03] MEDS ORDERED: Heparin 1000 UNIT/NS 500ML(OR) 1,000 ML ONE (09:01)
[2017-10-03] MEDS ORDERED: Nitroglycerin 100MG/250ML BOT 250 ML ONE (09:39)
[2017-10-03] MEDS ORDERED: Heparin 10,000 UNITS/1 ML VIAL ONE (09:39)
[2017-10-03] MEDS ORDERED: Verapamil 5 MG/2 ML VIAL ONE (09:39)
[2017-10-03] MEDS ORDERED: Sodium Chloride 0.9% 200 ML IV SCH (10:53)
[2017-10-03] MEDS ORDERED: Acetaminophen/Codeine 30-300mg Tablet PO PRN ×2 (10:53)
--- NOTE | 2017-10-03 14:01 | CON ---
DATE OF CONSULTATION: 10/03/2017 I am seeing Ms. Ramey at our [facility] telemetry floor as an electrophysiology sap pp consultant REFERRING PHYSICIAN: Dr. Cooper/Dr. Villalpando. SUBJECTIVE: Her problems are: 1. Prior history of supraventricular tachycardia. A. Prior SVT episodes treated with propafenone/metoprolol and digoxin with minimal breakthrough epis odes. B. Telemetry strips only significant for 5 seconds paroxysm of atrial tachycardia run. 2. Chest pains on admission, prompting a nuclear scan with reversibility in the mid left ventricular noted at 84%. A. Left heart catheterization today demonstrating normal coronary arteries. LVEF 60/65%. 3. She has significant valvular heart disease in past with MR and TR per patient's history. ALLERGIES: AMOXICILLIN, CIPRO, PENICILLIN, and SULFA. MEDICATIONS: At home include digoxin 0.125 mg daily, metoprolol 12.5 mg p.o. daily, Lopressor 75 mg twice a day. SUBJECTIVE: Ms. Ramey is here due to episodes of nausea and vomiting, also chest pressure sensation in the chest. She felt her heart was beating strong, not necessarily fast, unlike in the past. She had some excessive caffeine intake that might have been contributed to this. She was evaluated with a stress test and left heart catheterization as noted above. She was monitore d for the last 4 days and short SVT is noted, beyond that she had normal rhythm without francisco or tach yarrhythmias. She denies chest pain, no fever, chills, cough, no PND, orthopnea, lower extremity edema, the rest of the 12 point review of system otherwise unremarkable. PAST MEDICAL HISTORY: As above. She has been previously seen by Dr. Groves and a supply chain intern in [facility] where she is on an indigent program. She has planned to see a new supply chain intern there. SOCIAL HISTORY: Patient denies smoking, ETOH or drug use. Lives at home. FAMILY HISTORY: Significant for brother having a pacemaker, father and mother had heart disease. OBJECTIVE DATA: VITAL SIGNS: Blood pressure is 109/60, heart rate 60, respirations 16, temperature 98 degrees Fahren heit. GENERAL: Alert and oriented woman in no apparent distress. NECK: Supple. Jugular veins not distended. CHEST: Coarse without crackles. CARDIAC: Heart sounds are regular to rate and rhythm. No murmur or gallop is appreciated. PMI is n ondisplaced. ABDOMEN: Benign. Bowel sounds positive. EXTREMITIES: Right wrist has a pressure device post radial heart catheterization as noted. Lower ex tremities without edema, clubbing or cyanosis. Pulses are adequate. NEUROLOGIC: Patient is nonfocal. MUSCULOSKELETAL: No joint swelling or deformities. SKIN: Without rash. DATABASE: EKGs reviewed revealing sinus rhythm, rate of 79 beats per minute, no significant changes. Subsequent telemetry strips reveal sinus rhythm except for a short run of atrial tachycardia 2 days ago with clear PVS preceding the QRS lasting total duration of about 6 seconds. Peak ventricular ra te of 136 beats per minute noted. LABORATORY DATA: White count 8.5, hemoglobin 13.3, platelet count is 262. Sodium 138, potassium 4, BUN is 9, creatinine 0.71. ASSESSMENT AND PLAN: Mr. Ramey is a pleasant 47-year-old woman with a prior history of supraventric ular tachycardia which is reasonably well suppressed with low dose propafenone, metoprolol, and digox in. Her current admission is more for her chest pains which appears to be not cardiac, possibly genesis rointestinal in origin. Although she had a short breakthrough it does not seem to be very frequent w ith the current regimen. I have asked her to try to take her propafenone 12 hours apart and continue digoxin and metoprolol at the current dosages. If necessary these medications could be further increased, but at this point, would likely be rare recurrence of palpitations, would not suggest a need for any changes. [facility] consideration for ablation or EP study could be made, although at this point as she has goo d clinical status with the current regimen would not suggest significant benefit. I will have to see her back as an outpatient. Thank you again for allowing me to participate in the care of this patient. Please do not hesitate t o call if I can be of further help.
[2017-10-03 15:28] LABS: Hematocrit 41.5 % (36.0-47.0)
[2017-10-03 16:01] VITALS: BP 113/65; TEMP 97.9
[2017-10-03] MEDS: Ondansetron ODT 4 MG TAB PO PRN (16:18)
[2017-10-03] MEDS: HYDROcodone/Acetaminophen 5/325 mg Tablet PO PRN (16:18)
[2017-10-03] MEDS ORDERED: Iopamidol 370 76% 100 ML VIAL ONE (17:10)
--- NOTE | 2017-10-03 23:52 | DIS ---
DATE OF ADMISSION: 09/29/2017 DATE OF DISCHARGE: 10/03/2017 PRIMARY CARE PHYSICIAN: Sue Welch M.D. DISCHARGE DIAGNOSES: 1. Chest pain. 2. Supraventricular tachycardia. CONDITION OF PATIENT AT THE TIME OF DISCHARGE: Stable. I assessed Ms. Ramey on the day of discharg e. She denies any chest pain or shortness of breath. Vital signs are stable. S1 and S2 are heard, regular. Lungs are clear to auscultation bilaterally. DISCHARGE MEDICATIONS: No changes were made to her preadmission home medications as dictated on hist ory and physical note from 09/29/2017. CONSULTATIONS DURING THIS HOSPITALIZATION: Cardiology, Dr. Villalpando and EP Services, Dr. Valadez. HOSPITAL COURSE: Ms. Ramey is a pleasant 47-year-old lady who was admitted to [facility] on 09/29/2017 for chest pain, suspected to be due to unstable angina. She was seen by C ardiology Service. She had a normal TSH and normal D-dimer during this admission. Troponins were no rmal. On 10/03/2017, she underwent cardiac catheterization with normal coronary arteries. She will likely need a Gastroenterology referral to rule out gastrointestinal causes of chest discomf ort. She was also seen by Electrophysiology Service because of run of supraventricular tachycardia. She h as been advised to take her propafenone at 12 hours apart and continued digoxin and metoprolol at the current dosages. On the day of discharge, she has an unremarkable comprehensive metabolic profile, hemoglobin 13.4, he matocrit 41.5, and platelet count 243,000. Her fasting lipid profile during this admission showed tr iglycerides of 51, cholesterol 152, LDL cholesterol 92, and HDL cholesterol 50. TSH was normal at 2. 3745. Many thanks for allowing me to participate in your patient's care. Please feel free to contact me wi th any questions or concerns. DISCHARGE DESTINATION: Home. TOTAL AMOUNT OF TIME SPENT COORDINATING THIS DISCHARGE: 34 minutes.
--- NOTE | 2017-10-04 07:34 | EKG ---
Test Reason : Blood Pressure : / mmHG Vent. Rate : 069 BPM Atrial Rate : 069 BPM P-R Int : 134 ms QRS Dur : 076 ms QT Int : 372 ms P-R-T Axes : 081 060 077 degrees QTc Int : 398 ms Normal sinus rhythm Normal ECG When compared with ECG of 29-SEP-2017 18:12, (Unconfirmed) No significant change was found Confirmed by DOROTHEA IVEY, . S. ([id number]) on 10/04/2017 7:34:32 AM Referred By: LEDA Confirmed By:DR. Coby PIEDRA MD
--- NOTE | 2017-11-05 14:07 | EKG ---
Test Reason : Blood Pressure : / mmHG Vent. Rate : 079 BPM Atrial Rate : 079 BPM P-R Int : 112 ms QRS Dur : 070 ms QT Int : 366 ms P-R-T Axes : 070 060 074 degrees QTc Int : 419 ms Normal sinus rhythm Nonspecific ST abnormality Abnormal ECG Confirmed by DEMETRIA BAUTISTA DO ([id number]), editor greeting card MILAGROS MCDONALD ([id number]) on 11/05/2017 2:06:30 PM Referred By: Confirmed By:DEMETRIA BAUTISTA DO
== END 2017-10-03 18:08 | disposition home or self-care (01) | DRG 287 ==
LOC: ERS 18:03 → 2SW 22:44 → OBSVTOIN 22:44 → 2NO 09-30 20:37
PROVIDERS: ADMIT Internal Medicine; ATTEND Internal Medicine
PROC: 4A023N7 Measurement of Cardiac Sampling and Pressure, Left Heart, Percutaneous Approach (ICD-10-PCS; principal; 2017-10-03)
PROC: B2111ZZ Fluoroscopy of Multiple Coronary Arteries using Low Osmolar Contrast (ICD-10-PCS; 2017-10-03)
PROC: B2151ZZ Fluoroscopy of Left Heart using Low Osmolar Contrast (ICD-10-PCS; 2017-10-03)
DX: R07.89 Other chest pain (principal); I47.1 Supraventricular tachycardia; L29.9 Pruritus, unspecified; R11.0 Nausea; R94.39 Abnormal result of other cardiovascular function study; Z23 Encounter for immunization
CPT/HCPCS: 36415; 71010; 78452; 80053; 80061; 81003; 81015; 82550; 82553; 82565; 84443; 84484; 85014; 85018; 85025; 85049; 85379; 87086; 90471; 90682; 93005; 93010; 93017; 93458; 94760; A4216; A9500; C1769; G0008; J0153; J1644; J1650; J2405; Q0162; Q2036

== ENCOUNTER 2019-07-21 11:22 | Emergency (ER) | payer OTHER, SELFPAY | END 2019-07-21 12:55 | disposition home or self-care (01) | LOC: ERS 11:22 | DX: L08.9 Local infection of the skin and subcutaneous tissue, unspecified (principal); I49.9 Cardiac arrhythmia, unspecified; Z79.899 Other long term (current) drug therapy | CPT/HCPCS: 99281 ==

== ENCOUNTER 2019-08-21 15:42 | Observation (INO) | payer SELFPAY ==
[2019-08-21 16:17] LABS: #Basophils 0.1 thou/uL (0.0-0.2); #Eosinphils 0.1 thou/uL (0.0-0.7); #Lymphocytes 1.7 thou/uL (1.20-3.40); #Monocytes 0.8 thou/uL (0.11-0.59); %Basophils 0.8 % (0.0-1.0); %Eosinophils 0.6 % (0.0-10.0); %Lymphocytes 14.7 % (21.0-51.0); %Monocytes 6.7 % (0.0-10.0); %Neutrophils 77.2 % (42.0-75.0); Hemoglobin 13.2 g/dL (12.0-16.0); Mean Corpuscular HGB CONC 33.2 g/dL (32.0-36.0); Mean Corpuscular Hemoglobin 30.8 pg (27.0-31.0); Mean Corpuscular Volume 92.7 fL (78.0-98.0); Mean Platelet Volume 7.6 fL (7.4-10.4); Platelet Count 285 thou/uL (130-400); RBC Distribution Width 12.1 % (11.5-14.5); Red Blood Cell (RBC) Count 4.27 mill/uL (4.20-5.40); White Blood Cell (WBC) Count 11.7 thou/uL (4.8-10.8)
[2019-08-21 16:37] LABS: ALT (SGPT) 20 U/L (8-55); AST (SGOT) 20 U/L (5-34); Albumin 4.1 g/dL (3.5-5.0); Alkaline Phosphatase 63 U/L (40-110); Anion Gap 14 mmol/L (10-20); BUN (Urea Nitrogen) 10 mg/dL (7.0-18.7); Bilirubin, Total 0.8 mg/dL (0.2-1.2); CK (CPK) 57 U/L (29-168); Calc. Creatinine Clearance 0 mL/min (70-130); Calcium 8.8 mg/dL (7.8-10.44); Carbon Dioxide 26 mmol/L (22-29); Chloride 107 mmol/L (98-107); Estimated GFR-MDRD 63; Globulin 2.6 g/dL (2.4-3.5); Glucose 104 mg/dL (70-105); Potassium 3.7 mmol/L (3.5-5.1); Protein, Total 6.7 g/dL (6.0-8.3); Sodium 143 mmol/L (136-145)
--- NOTE | 2019-08-21 16:57 | PDOC.FPRHP ---
- History of Present Illness Chief Complaint: palpitations, chest pain History of Present Illness: This is a 48yo F presenting to the ED after chest pain/palpitations. She states her heart started racing around 130 after eating lunch. She was sitting in a chair at the time and not exerting herself. Her head started hurting and both arms were tingling. Associated with SOB. States she took her HR was 200s at the time. She states she took metoprolol and propafenone which did not help. She states she called 911 who instructed her to take a baby ASA. She also tried squatting which did not help the pain/palpitations. The ambulance took about 25 min to get there. When they arrived her HR was 186 and she was experiencing nausea. She then did squats with them and her HR and pain improved. On exam in the ER her chest pain has completely resolved. She states she has had similar episodes in the past - the last one being about 2 years ago. Patient also endorses occasional LE edema that occurs after standing or working outside. States she was diagnosed years ago with SVT. Per the patient, has been compliant with her medications. She did state that she started taking half of her metoprolol on her own. She has been taking 75 daily of propafenone but prescribed 150 mg BID. She states she had been doing good so she thought she could cut back. She was seeing a optical systems engineer in [place] (Dr. Meek) but they went bankrupt. It has been over a year since seeing anyone. She has had an echo performed and "everything looked good" in the past. She does not have a PCP. She has never had a stress test. She had a cardiac cath [address] Villalpando that was normal. ED Course: EKG NSR - Allergies/Adverse Reactions Allergies Allergy/AdvReac Type Severity Reaction Status Date / Time amoxicillin Allergy Verified 08/21/19 20:53 ciprofloxacin [From Cipro] Allergy Verified 08/21/19 20:53 ciprofloxacin HCl Allergy Verified 08/21/19 20:53 [From Cipro] nitrofurantoin Allergy Verified 08/21/19 20:53 Penicillins Allergy Verified 08/21/19 20:53 Sulfa (Sulfonamide Allergy Verified 08/21/19 20:53 Antibiotics) perflutren lipid microspheres AdvReac Unknown Rash Verified 08/21/19 20:53 [From Definity] - Home Medications Medication Instructions Recorded Confirmed Type Digoxin [Lanoxin] 0.125 mg PO DAILY 06/23/16 08/21/19 History Metoprolol Tartrate 12.5 mg PO DAILY 06/23/16 08/21/19 History Propafenone HCl 75 mg PO BID 06/23/16 08/21/19 History - History PMHx: hx of SVT PSHx: none FHx: GM - of heart attack at in her 60s, Mom & brother - DM, Mom - HTN Social: denies sm/etoh/drug use; 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 denies: cough , congestion Cardiovascular: reports: chest pain, palpitation. denies: edema Gastrointestinal: reports: nausea. denies: vomiting, diarrhea, constipation, abdominal pain Genitourinary: denies: incontinence, dysuria Skin: denies: rashes Musculoskeletal: reports: swelling (1yr). denies: pain Neurological: denies: syncope, weakness Psychological: denies: anxiety, depression - Vital signs BP: 118/71 HR: 82 RR: 18 Tmax: Pox: 98% on RA Wt: 50kg - Physical Exam Constitutional: NAD, awake, alert and oriented, well developed HEENT: normocephalic and atraumatic, PERRLA, EOMI, MMM Neck: supple, FROM, trachea midline Heart: RRR, normal S1/S2, no murmurs/rubs/gallops, pulses present, other (trace LE edema) Lungs: CTAB, no respiratory distress, no wheezing Abdomen: soft, non-tender, bowel sounds present, no masses/distention Musculoskeletal: normal structure, normal tone, ROM grossly normal Neurological: no focal deficit Skin: no rash/lesions, good turgor Psychiatric: normal mood and affect, good judgment and insight, intact recent and remote memory FMR H&P: Results - Labs Result Diagrams: 08/21/19 16:06 08/21/19 16:05 Lab results: WBC 11.7 thou/uL (4.8-10.8) H 08/21/19 16:06 Hgb 13.2 g/dL (12.0-16.0) 08/21/19 16:06 Hct 39.6 % (36.0-47.0) 08/21/19 16:06 MCV 92.7 fL (78.0-98.0) 08/21/19 16:06 Plt Count 285 thou/uL (130-400) 08/21/19 16:06 Neutrophils % 77.2 % (42.0-75.0) H 08/21/19 16:06 Sodium 143 mmol/L (136-145) 08/21/19 16:05 Potassium 3.7 mmol/L (3.5-5.1) 08/21/19 16:05 Chloride 107 mmol/L (98-107) 08/21/19 16:05 Carbon Dioxide 26 mmol/L (22-29) 08/21/19 16:05 BUN 10 mg/dL (7.0-18.7) 08/21/19 16:05 Creatinine 0.94 mg/dL (0.6-1.1) 08/21/19 16:05 Glucose 104 mg/dL (70-105) 08/21/19 16:05 Calcium 8.8 mg/dL (7.8-10.44) 08/21/19 16:05 Total Bilirubin 0.8 mg/dL (0.2-1.2) 08/21/19 16:05 AST 20 U/L (5-34) 08/21/19 16:05 ALT 20 U/L (8-55) 08/21/19 16:05 Alkaline Phosphatase 63 U/L (40-110) 08/21/19 16:05 Creatine Kinase 57 U/L (29-168) 08/21/19 16:05 Serum Total Protein 6.7 g/dL (6.0-8.3) 08/21/19 16:05 Albumin 4.1 g/dL (3.5-5.0) 08/21/19 16:05 - EKG Interpretation EKG: Initial EKG revealed revealed ST depressions in V2-V4. On repeat in the ED, EKG was NSR with resolution of ST depressions. FMR H&P: A/P - Problem List (1) Chest pain Current Visit: No Status: Acute Code(s): R07.9 - CHEST PAIN, UNSPECIFIED (2) SVT (supraventricular tachycardia) Current Visit: No Status: Chronic Code(s): I47.1 - SUPRAVENTRICULAR TACHYCARDIA - Plan This is a 48yo F presenting today with chest pain/palpitations, found to be in SVT that resolved with vagal maneuvers. #SVT, stable EKG initially showing ST depression which have since resolved. New EKG showing NSR. - Admit to tele, obs - Will resume patient's medications at previously recommended doses by Dr. Valadez. - Will trend troponins. Initial 0.045. - TSH, A1c, Lipid Panel pending Fluids: none Diet: Reg VTE: SCDs Code: Full Case discussed with Dr. Wells FMR H&P: Upper Level - Pertinent history Was present for HPI and helped scribe the above documentation. - Pertinent findings PE: General: NAD, well developed Cardio: RRR, no murmurs, rubs or gallops; no TTP of chest wall, no JVD Resp: CTAB, non-labored breathing MSK: trace edema b/l; full ROM of extremities See business services intern note for full PE - Plan Date/Time: 08/21/19 [id number] I, [Helene Collins], have evaluated this patient and agree with findings/plan as outlined by business services intern resident. Pertinent changes/additions are listed here. #SVT - Heart score of 3- low risk - Will restart patient's home medications for SVT. Discussed with patient the need to stay on medications as prescribed. Can consider cardiology/EP consult for SVT. Patient states she would need to think about having an ablation done for her SVT. - Dig level pending - Initial trop 0.045 - will continue to trend - FLP, A1c to risk stratify - Admt to tele for observation Case discussed with Dr. Wells Addendum - Attending - Attending Attestation Date/Time: 08/21/19 5587 I personally evaluated the patient and discussed the management with Dr. Branham. I agree with the History, Examination, Assessment and Plan documented above with any addition or exceptions noted below.
[2019-08-21] MEDS ORDERED: Aspirin Chewable 81 MG TAB ONE (17:21)
[2019-08-21 17:26] LABS: Digoxin 0.55 ng/mL (0.8-2.0)
[2019-08-21] MEDS ORDERED: Ondansetron PF 4 MG/2 ML Vial IVP PRN (17:29)
[2019-08-21] MEDS ORDERED: Acetaminophen 325 MG TAB PO PRN (17:29)
[2019-08-21] MEDS ORDERED: Ondansetron ODT 4 MG TAB PO PRN (17:29)
[2019-08-21] MEDS ORDERED: Nitroglycerin 0.4 MG TAB (25 Tab Bottle) PO PRN (17:32)
[2019-08-21 18:22] LABS: Troponin I 0.118 ng/mL (< 0.028)
[2019-08-21 20:35] VITALS: BMI 19.3
[2019-08-21] MEDS: Propafenone HCl 150 MG TAB PO SCH (21:11)
[2019-08-21 23:21] LABS: Troponin I 0.173 ng/mL (< 0.028)
[2019-08-22 03:11] LABS: Troponin I 0.108 ng/mL (< 0.028)
[2019-08-22 03:18] LABS: Cardiac Risk 2.9 (Less than 4.5)
--- NOTE | 2019-08-22 05:49 | PDOC.FM ---
- Subjective Subjective: Pt is doing well w/o any chest pain, sob. She had an episode of SVT while ambulating. Pt was unaware. No falls. - Objective Vital Signs & Weight: Vital Signs (12 hours) Temp Pulse Resp BP Pulse Ox 08/22/19 03:00 98.2 F 72 16 101/59 L 98 08/22/19 02:05 98 08/21/19 23:40 97.8 F 85 18 95/53 L 98 08/21/19 20:15 98.7 F 79 16 116/74 98 Weight Weight 49.623 kg I&O: 08/20/19 08/21/19 08/22/19 06:59 06:59 06:59 Intake Total 290 Output Total 300 Balance -10 Result Diagrams: 08/21/19 16:06 08/21/19 16:05 Phys Exam - Physical Examination Constitutional: NAD Respiratory: no wheezing, no rales, clear to auscultation bilateral Cardiovascular: RRR, no significant murmur Gastrointestinal: soft, non-tender, no distention Musculoskeletal: pulses present Trace edema in LE Dx/Plan (1) Chest pain Code(s): R07.9 - CHEST PAIN, UNSPECIFIED Status: Acute (2) SVT (supraventricular tachycardia) Code(s): I47.1 - SUPRAVENTRICULAR TACHYCARDIA Status: Chronic - Plan Plan: This is a 48yo F presenting today with chest pain/palpitations, found to be in SVT that resolved with vagal maneuvers. #SVT, stable EKG initially showing ST depression which have since resolved. New EKG showing NSR. - Will resume patient's medications at previously recommended doses by Dr. Valadez. These are lower doses than her current prescriptions by last promotions executive 1 year ago. Will monitor her blood pressures with administration of medications , 101/59 this morning. - Will trend troponins. 0.045 -> 0.118 -> 0.173 -> 0.108 - TSH, A1c, Lipid Panel, BNP WNL - Repeat EKG pending - Consult cards for medication management, stress test pending. Fluids: none Diet: Reg VTE: SCDs Code: Full Dispo: monitor blood pressures with administration of new medications, < 48 hour stay.
[2019-08-22] MEDS: Propafenone HCl 150 MG TAB PO SCH (08:31)
[2019-08-22] MEDS ORDERED: Metoprolol Tartrate 25 MG TAB PO SCH ×2 (09:00→21:00)
[2019-08-22] MEDS ORDERED: Digoxin 0.125 MG TAB PO SCH (09:00)
--- NOTE | 2019-08-22 11:53 | CON ---
DATE OF CONSULTATION: HISTORY OF PRESENT ILLNESS: The patient is a 48-year-old woman, who presents for evaluation of recurrent palpitations. The patient has a long history of SVT. The patient has previously undergone an evaluation for SVT. She states her first episode occurred in 2011. The patient has had multiple episodes. She was in the hospital in September 2017 with chest pain and palpitations. A cardiac catheterization revealed normal left systolic function with normal coronary arteries. The patient was subsequently treated with propafenone and metoprolol. She had been feeling well and decreased the dose of Rythmol a year ago. She presented with recurrent palpitations and chest discomfort. The patient denies having any present chest discomfort. PAST MEDICAL HISTORY: SVT. PAST SURGICAL HISTORY: None. SOCIAL HISTORY: None. ALLERGIES: AMOXICILLIN, CIPROFLOXACIN, PENICILLIN, AND SULFA DRUGS. SOCIAL HISTORY: Nonsmoker. FAMILY HISTORY: There is some positive family history of coronary artery disease. REVIEW OF SYSTEMS: Ten-point system otherwise unremarkable. PHYSICAL EXAMINATION: GENERAL: Thin woman in no acute distress with a blood pressure 107/58. NECK: No jugular venous distention. LUNGS: Clear to auscultation. HEART: Regular rate and rhythm. Normal S1, S2. ABDOMEN: Nondistended. EXTREMITIES: Showed no edema. VASCULAR: Radial pulses are 2+. LABORATORY RESULTS: Her sodium is 143, potassium 3.7, chloride 107, bicarbonate 26, BUN 10, and creatinine 0.94. Troponin was 1.118. White blood cell count 11.7, hemoglobin 13.2, hematocrit 39.6, platelets 285. IMAGING STUDIES: Her EKG reveals normal sinus rhythm with a normal ECG. Telemetry monitoring supraventricular tachycardia. IMPRESSION AND PLAN: 1. Supraventricular tachycardia. 2. Chest pain with history of a normal cardiac catheterization. 3. Noncompliance. This patient presents with recurrent supraventricular tachycardia. From a cardiac standpoint, she should be considered for radiofrequency ablation. We will consult EP. We will follow this patient with you through her hospitalization. Job ID: [id number] [facility]
[2019-08-22] MEDS ORDERED: Propafenone HCl 150 MG TAB PO SCH (12:15)
[2019-08-22 12:20] VITALS: BP 126/70; TEMP 98.2
--- NOTE | 2019-08-22 14:47 | CON ---
DATE OF CONSULTATION: REASON FOR CONSULTATION: SVT. HISTORY OF PRESENT ILLNESS: Ms. Ramey is a 48-year-old woman with a history of SVT initially diagnosed in 2011. She was evaluated by myself last year around this time for the same issue. She had been treated with propafenone, metoprolol, and digoxin with minimal breakthrough episodes, but reports that she has been having bradycardic episodes and was adjusting her medications on her own with reducing metoprolol and propafenone in half. She is currently taking propafenone 75 mg b.i.d. and metoprolol tartrate 12.5 mg daily. She is also on low-dose digoxin. Ms. Ramey was at home and began to experience heart racing palpitations. She attempted vagal maneuvers with no success and called 911. They also had her performed vagal maneuvers, which terminated her SVT. 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 When she had her episode last year, no tracing of her SVT was captured or available for review, but she did have a run of PAT on telemetry during her hospital evaluation at that time. Ms. Ramey is currently feeling well. She has not had any recurrent episodes since she was admitted to the hospital. She denies any heart racing, palpitations, chest pain, pressure, syncope, near syncope, stroke, or stroke-like symptoms currently. REVIEW OF SYSTEMS: A 12-point review of systems is negative and as per HPI. PAST MEDICAL HISTORY: 1. SVT diagnosed in 2011, well suppressed with propafenone 150 mg b.i.d. 2. 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 3. Paroxysmal atrial tachycardia. 4. LVEF 60% to 65%, by left heart catheterization in 2018. ALLERGIES: AMOXICILLIN, CIPROFLOXACIN, PENICILLIN AND SULFA. HOME MEDICATIONS: 1. Digoxin 125 mcg daily. 2. Metoprolol tartrate 12.5 mg daily. 3. Propafenone 75 mg b.i.d. SOCIAL HISTORY: Denies alcohol, tobacco, or illicit drug use. Lives at home independently. FAMILY HISTORY: Positive for brother has pacemaker. Mother and father had heart disease. OBJECTIVE: VITAL SIGNS: Temperature 98.2, pulse 76, blood pressure 126/70, and respirations 14. The patient is afebrile. GENERAL: The patient is alert and oriented. Speech is clear. Affect is appropriate. She is in no apparent distress. LUNGS: Clear to auscultation. Jugular venous distention is absent. HEART: Sounds are irregularly irregular with crisp S1 and S2. PMI is nondisplaced. ABDOMEN: Soft and nontender without palpable masses. EXTREMITIES: Warm and dry to touch. Well perfused without clubbing, cyanosis, or edema. NEUROLOGIC: Nonfocal and grossly intact and gait is stable. DATABASE: Hematology was unremarkable. Chemistry, TSH 1.08 and creatinine 0.94, overall unremarkable as well. Telemetry and EKGs were all personally reviewed and shows sinus rhythm with normal intervals since admission in the hospital. There is a tracing from EMS that shows ongoing SVT with short RP interval suggestive of AVNRT. Onset and termination were not captured and could not be reviewed. IMPRESSION: 1. Recurrent supraventricular tachycardia. 2. 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 3. Antiarrhythmic therapy with propafenone. 4. Preserved left ventricular ejection fraction and normal coronary arteries by heart catheterization in 2018. RECOMMENDATIONS: Ms. Ramey has a history of SVT that is reasonably well suppressed with low-dose propafenone, but she had recently been further lowering this dose in addition to her metoprolol, but began to experience breakthrough episodes. We discussed treatment options including medical management versus EP study and ablation. She was offered EP study and ablation later this week, which she has declined. She prefers to do this as an outpatient when she has family around. I will adjust her medications and prefer she go back on propafenone 150 mg p.o. b.i.d., but we may stop her metoprolol and digoxin to prevent further bradycardic episodes. We will see her back in 6 weeks at clinic for followup and to discuss future treatment options including ablation. Thank you for allowing me to participate in the care of this patient. Do not hesitate to call if I can be of further help. Job ID: [id number]
[2019-08-23] MEDS ORDERED: Metoprolol Tartrate 25 MG TAB PO SCH (09:00)
--- NOTE | 2019-08-23 23:19 | EKG ---
Test Reason : Blood Pressure : / mmHG Vent. Rate : 073 BPM Atrial Rate : 073 BPM P-R Int : 156 ms QRS Dur : 080 ms QT Int : 398 ms P-R-T Axes : 075 066 074 degrees QTc Int : 438 ms Normal sinus rhythm Normal ECG When compared with ECG of 21-AUG-2019 16:41, (Unconfirmed) No significant change was found Confirmed by Jordan CASTILLO ([id number]) on 08/23/2019 11:18:50 PM Referred By: KRYSTAL Confirmed By:Jordan CASTILLO
--- NOTE | 2019-08-26 02:34 | EKG ---
Test Reason : Blood Pressure : / mmHG Vent. Rate : 085 BPM Atrial Rate : 085 BPM P-R Int : 116 ms QRS Dur : 068 ms QT Int : 350 ms P-R-T Axes : 070 070 068 degrees QTc Int : 416 ms Normal sinus rhythm Normal ECG Confirmed by IZABELLA IVEY, CIARAN Najera ([id number]), book or script editor MILAGROS MCDONALD ([id number]) on 08/26/2019 2:33:59 AM Referred By: Confirmed By:CIARAN PAREKH MD
== END 2019-08-22 14:51 | disposition home or self-care (01) ==
LOC: ERS 15:42 → 2SW 20:29
PROVIDERS: ADMIT Student in an Organized Health Care Education/Training Program; ATTEND Student in an Organized Health Care Education/Training Program
DX: I47.1 Supraventricular tachycardia (principal); Z79.899 Other long term (current) drug therapy; Z88.0 Allergy status to penicillin; Z88.1 Allergy status to other antibiotic agents; Z88.2 Allergy status to sulfonamides; Z88.8 Allergy status to other drugs, medicaments and biological substances
CPT/HCPCS: 36415; 80053; 80061; 80162; 82550; 82553; 83036; 83880; 84443; 84484; 85025; 93005; 93010; 94760; G0378

== ENCOUNTER 2019-10-08 08:54 | Emergency (ER) | payer OTHER, SELFPAY ==
[2019-10-08] MEDS ORDERED: Ketorolac Tromethamine 30 MG/ML VIAL ONE (10:09)
[2019-10-08] MEDS ORDERED: Metoclopramide HCl 10 MG/2 ML VIAL ONE ×2 (10:09→10:10)
[2019-10-08] MEDS ORDERED: diphenhydrAMINE 12.5 MG/5 ML UDCUP ONE (10:09)
[2019-10-08] MEDS ORDERED: diphenhydrAMINE 50 MG/ML VIAL ONE (10:11)
== END 2019-10-08 13:59 | disposition home or self-care (01) ==
LOC: ERS 08:54
DX: R51 Headache (principal); I49.9 Cardiac arrhythmia, unspecified; F41.9 Anxiety disorder, unspecified; Z79.899 Other long term (current) drug therapy
CPT/HCPCS: 96365; 96366; 96375; J1200; J1885; J2765; Q0163

== ENCOUNTER 2021-08-06 21:59 | Inpatient (IN) | payer SELFPAY ==
[2021-08-06] MEDS ORDERED: Metoprolol Tartrate 25 MG TAB ONE (23:37)
[2021-08-06 23:43] LABS: #Basophils 0.1 thou/uL (0.0-0.2); #Lymphocytes 1.7 thou/uL (1.20-3.40); #Monocytes 0.8 thou/uL (0.11-0.59); %Basophils 1.7 % (0.0-1.0); %Eosinophils 0.7 % (0.0-10.0); %Lymphocytes 26.1 % (21.0-51.0); %Monocytes 11.8 % (0.0-10.0); %Neutrophils 59.7 % (42.0-75.0); Hemoglobin 11.9 g/dL (12.0-16.0); Mean Corpuscular HGB CONC 32.8 g/dL (32.0-36.0); Mean Corpuscular Hemoglobin 30.7 pg (27.0-31.0); Mean Corpuscular Volume 93.4 fL (78.0-98.0); Mean Platelet Volume 7.9 fL (7.4-10.4); Platelet Count 282 thou/uL (130-400); Red Blood Cell (RBC) Count 3.88 mill/uL (4.20-5.40); White Blood Cell (WBC) Count 6.6 thou/uL (4.8-10.8)
[2021-08-07 00:06] LABS: ALT (SGPT) 14 U/L (8-55); AST (SGOT) 20 U/L (5-34); Albumin 3.7 g/dL (3.5-5.0); Alkaline Phosphatase 50 U/L (40-110); Anion Gap 9 mmol/L (10-20); BUN (Urea Nitrogen) 16 mg/dL (9.8-20.1); Bilirubin, Total 0.4 mg/dL (0.2-1.2); Calc. Creatinine Clearance 0 mL/min (70-130); Calcium 9.3 mg/dL (7.8-10.44); Carbon Dioxide 26 mmol/L (22-29); Chloride 111 mmol/L (98-107); Globulin 2.4 g/dL (2.4-3.5); Glucose 117 mg/dL (70-105); Potassium 4.3 mmol/L (3.5-5.1); Protein, Total 6.1 g/dL (6.0-8.3); Sodium 142 mmol/L (136-145)
[2021-08-07 00:28] LABS: CKMB 0.8 ng/mL (0-6.6)
[2021-08-07 03:54] VITALS: BMI 18.7
[2021-08-07 04:52] LABS: Troponin I 0.024 ng/mL (< 0.028)
[2021-08-07 07:39] LABS: Troponin I 0.026 ng/mL (< 0.028)
[2021-08-07] MEDS ORDERED: Acetaminophen 325 MG TAB PO PRN (08:52)
[2021-08-07 09:38] LABS: Magnesium 2.2 mg/dL (1.6-2.6); Phosphorus 2.7 mg/dL (2.3-4.7)
[2021-08-07] MEDS ORDERED: Sodium Chloride 0.9% 500 ML IV SCH (23:45)
[2021-08-08 00:02] LABS: SARS-CoV-2 PCR by NAA Not Detected (NotDetected)
[2021-08-08 04:57] LABS: #Basophils 0.1 thou/uL (0.0-0.2); #Eosinphils 0.1 thou/uL (0.0-0.7); #Lymphocytes 2.5 thou/uL (1.20-3.40); #Monocytes 0.7 thou/uL (0.11-0.59); #Neutrophils 5.5 thou/uL (1.40-6.50); %Basophils 0.8 % (0.0-1.0); %Eosinophils 1.6 % (0.0-10.0); %Monocytes 8.3 % (0.0-10.0); %Neutrophils 61.3 % (42.0-75.0); Hemoglobin 11.5 g/dL (12.0-16.0); Mean Corpuscular HGB CONC 32.6 g/dL (32.0-36.0); Mean Corpuscular Hemoglobin 30.6 pg (27.0-31.0); Mean Corpuscular Volume 93.9 fL (78.0-98.0); Mean Platelet Volume 7.9 fL (7.4-10.4); Platelet Count 271 thou/uL (130-400); RBC Distribution Width 12.1 % (11.5-14.5); Red Blood Cell (RBC) Count 3.74 mill/uL (4.20-5.40); White Blood Cell (WBC) Count 8.9 thou/uL (4.8-10.8)
[2021-08-08 05:18] LABS: Anion Gap 9 mmol/L (10-20); BUN (Urea Nitrogen) 15 mg/dL (9.8-20.1); Calc. Creatinine Clearance 66 mL/min (70-130); Calcium 8.4 mg/dL (7.8-10.44); Carbon Dioxide 23 mmol/L (22-29); Cardiac Risk 2.7 (Less than 4.5); Chloride 109 mmol/L (98-107); Cholesterol 148 mg/dl (< 200 Desired); Glucose 89 mg/dL (70-105); HDL Cholesterol 54 mg/dL (>60 Neg Risk); LDL Cholesterol, Calculated 88 mg/dL; Potassium 4.4 mmol/L (3.5-5.1); Sodium 137 mmol/L (136-145); Triglycerides 30 mg/dL (Less than 150)
[2021-08-08] MEDS ORDERED: Sodium Chloride 0.9% 1,000 ML IV SCH ×2 (10:15→11:45)
[2021-08-08] MEDS: Digoxin 0.125 MG TAB PO SCH (21:23)
[2021-08-09] MEDS: Digoxin 0.125 MG TAB PO SCH (09:13)
[2021-08-10] MEDS: Digoxin 0.125 MG TAB PO SCH (08:58)
[2021-08-10] MEDS ORDERED: Isoproterenol 0.2 MG/1 ML AMP ONE (13:17)
[2021-08-10] MEDS ORDERED: Heparin 10,000 UNITS/ 10 ML VIAL ONE (13:17)
[2021-08-10] MEDS ORDERED: Lidocaine 1% (PF) 30 ML VIAL ONE (13:17)
[2021-08-10] MEDS ORDERED: DOPamine 400 MG/D5W 250 ML 0 ML ONE (13:21)
[2021-08-10] MEDS ORDERED: PHENYLEPHRINE-NS 100 MCG/ML 10 ML SYRINGE ONE (14:18)
[2021-08-10] MEDS ORDERED: PROPOFOL 200 MG/20 ML VIAL ONE (14:18)
[2021-08-10] MEDS ORDERED: ePHEDrine 50 MG/ML VIAL ONE (14:18)
[2021-08-10] MEDS ORDERED: Fentanyl 100 MCG/2 ML VIAL ONE (14:21)
[2021-08-10] MEDS ORDERED: Midazolam HCl 2 mg/2 ml Vial ONE (14:21)
[2021-08-10] MEDS ORDERED: Propofol 1,000 MG/100 ML VIAL IV ONE (14:22)
[2021-08-10] MEDS ORDERED: Promethazine HCl 25 MG/ML VIAL IVPB PRN (16:02)
[2021-08-10] MEDS ORDERED: Ondansetron HCl/PF 4 MG/2 ML Vial IVP PRN (16:02)
[2021-08-10] MEDS ORDERED: Promethazine HCl 25 MG/ML VIAL IM PRN (16:02)
[2021-08-11] MEDS: Digoxin 0.125 MG TAB PO SCH (08:19)
[2021-08-11 08:21] VITALS: TEMP 97.7
[2021-08-11 11:37] VITALS: BP 129/67
== END 2021-08-11 13:18 | disposition home or self-care (01) | DRG 274 ==
LOC: ERS 21:59 → 2NO 08-07 00:54 → OBSVTOIN 08-07 13:50
PROVIDERS: ADMIT Internal Medicine; ATTEND Internal Medicine
PROC: 02583ZZ Destruction of Conduction Mechanism, Percutaneous Approach (ICD-10-PCS; principal; 2021-08-10)
PROC: 02K83ZZ Map Conduction Mechanism, Percutaneous Approach (ICD-10-PCS; 2021-08-10)
PROC: 4A023FZ Measurement of Cardiac Rhythm, Percutaneous Approach (ICD-10-PCS; 2021-08-10)
PROC: 4A0234Z Measurement of Cardiac Electrical Activity, Percutaneous Approach (ICD-10-PCS; 2021-08-10)
DX: I47.1 Supraventricular tachycardia (principal); Z20.822 Contact with and (suspected) exposure to COVID-19; D64.9 Anemia, unspecified; I08.1 Rheumatic disorders of both mitral and tricuspid valves; F41.9 Anxiety disorder, unspecified; I95.2 Hypotension due to drugs; T46.1X5A Adverse effect of calcium-channel blockers, initial encounter; Z82.49 Family history of ischemic heart disease and other diseases of the circulatory system; Z88.0 Allergy status to penicillin; Z88.1 Allergy status to other antibiotic agents; Z88.2 Allergy status to sulfonamides; Z88.8 Allergy status to other drugs, medicaments and biological substances
CPT/HCPCS: 36415; 71045; 80048; 80053; 80061; 82553; 83735; 84100; 84443; 84484; 85025; 93005; 93010; 93306; 93613; 93621; 93623; 93653; 94760; C1730; C1732; G0378; J1265; J1644; J2001; J2250; J2704; J3010; J3490; J7030; U0003; U0005

== ENCOUNTER 2021-08-17 15:02 | Emergency (ER) | payer SELFPAY ==
[2021-08-17 16:02] LABS: ALT (SGPT) 11 U/L (8-55); AST (SGOT) 17 U/L (5-34); Alkaline Phosphatase 63 U/L (40-110); Anion Gap 13 mmol/L (10-20); BUN (Urea Nitrogen) 8 mg/dL (9.8-20.1); Bilirubin, Total 0.6 mg/dL (0.2-1.2); Calc. Creatinine Clearance 0 mL/min (70-130); Calcium 9.2 mg/dL (7.8-10.44); Carbon Dioxide 23 mmol/L (22-29); Chloride 104 mmol/L (98-107); Globulin 3.2 g/dL (2.4-3.5); Glucose 98 mg/dL (70-105); Potassium 4.4 mmol/L (3.5-5.1); Protein, Total 7.2 g/dL (6.0-8.3); Sodium 136 mmol/L (136-145)
[2021-08-17 16:38] LABS: #Basophils 0.1 thou/uL (0.0-0.2); #Eosinphils 0.1 thou/uL (0.0-0.7); #Lymphocytes 2.2 thou/uL (1.20-3.40); #Monocytes 0.7 thou/uL (0.11-0.59); #Neutrophils 4.8 thou/uL (1.40-6.50); %Basophils 0.8 % (0.0-1.0); %Eosinophils 0.7 % (0.0-10.0); %Monocytes 8.7 % (0.0-10.0); %Neutrophils 61.8 % (42.0-75.0); Hemoglobin 12.6 g/dL (12.0-16.0); Mean Corpuscular HGB CONC 32.8 g/dL (32.0-36.0); Mean Corpuscular Hemoglobin 30.7 pg (27.0-31.0); Mean Corpuscular Volume 93.4 fL (78.0-98.0); Mean Platelet Volume 7.6 fL (7.4-10.4); Platelet Count 317 thou/uL (130-400); RBC Distribution Width 11.7 % (11.5-14.5); Red Blood Cell (RBC) Count 4.12 mill/uL (4.20-5.40); White Blood Cell (WBC) Count 7.7 thou/uL (4.8-10.8)
[2021-08-17 18:36] LABS: Bilirubin Negative (Negative); Blood, Urine Negative (Negative); Clarity Clear (Clear); Glucose, Urine (Dipstick) Normal (Negative); Ketone, Urine Negative (Negative); Leukocyte Negative Leu/uL (Negative); Nitrite Negative (Negative); Protein, Urine (Dipstick) 10 mg/dL (Neg-Trace); Specific Gravity, Urine 1.022 (1.002-1.036); Urobilinogen Normal mg/dL (Less than 2); pH, Urine 7.5 (5.0-9.0)
== END 2021-08-17 21:55 | disposition home or self-care (01) ==
LOC: ERS 15:02
DX: I95.1 Orthostatic hypotension (principal)
CPT/HCPCS: 36415; 80053; 81003; 84484; 85025; 93005

== ENCOUNTER 2024-04-28 20:33 | Emergency (ER) | payer SELFPAY ==
[2024-04-28] MEDS ORDERED: Acetaminophen 500 MG TAB ONE (22:50)
== END 2024-04-28 22:53 | disposition home or self-care (01) ==
LOC: ERS 20:33
DX: T25.122A Burn of first degree of left foot, initial encounter (principal); W40.1XXA Explosion of explosive gases, initial encounter; Y93.89 Activity, other specified; Y92.096 Garden or yard of other non-institutional residence as the place of occurrence of the external cause
CPT/HCPCS: 99282